=== PATIENT | female | born 1940 | race African-American/Black ===

== ENCOUNTER 2018-08-10 17:49 | Inpatient (IN) | payer MEDICARE ==
[2018-08-11] MEDS: ALPRAZolam 0.25 MG TAB PO PRN ×2 (01:25→20:35)
[2018-08-11] MEDS: Mometasone/Formoterol 60 PUFF AER INH SCH ×2 (06:01→18:05)
[2018-08-11] MEDS: Acetaminophen 325 MG TAB PO PRN (08:44)
[2018-08-11] MEDS: Nebivolol HCl 5 MG TAB PO SCH (08:45)
[2018-08-11] MEDS: Folic Acid 1 MG TAB PO SCH (08:45)
[2018-08-11] MEDS: Polyethylene Glycol 3350 17 GM Packet PO SCH (08:45)
[2018-08-11] MEDS: Famotidine 20 MG TAB PO SCH (08:45)
[2018-08-11] MEDS: FORTEO 20 MCG SC SCH (09:00)
--- NOTE | 2018-08-11 09:59 | HP ---
DATE OF ADMISSION: To extended care later on the evening of 08/10/2018 CHIEF COMPLAINT: Weakness, following hospitalization for chronic obstructive pulmonary disease acute exacerbation. PRESENT ILLNESS: Mrs. Quinn is a 78-year-old -[place] female, who resides at her home alone. She has a history of COPD, depression, osteoporosis, dementia, and a fall with a right hip fracture requiring repair on 06/13/2018. The patient was hospitalized at [facility] from 08/04/20 18-08/10/2018 for acute hypoxic-hypercapnic respiratory failure, secondary to acute exacerbation of h er COPD. She required respiratory support initially with a BiPAP and treated with IV antibiotics and steroids with improvement. She was left very weak and essentially bed and chair-confined and with a ny activity creating some shortness of breath. While in the hospital, it was suggested she consider hospice care due to her advanced COPD, but she and the family have declined this. She opted to try s killed nursing to try to help with her generalized weakness. She has stopped smoking about a month p rior to this admission. The patient was transferred to [facility] for efforts to try to help with her general weakness and deconditioning in an effort to improve her general functio nal capability. She arrived to the hospital late on the evening of 08/10/2018 and her routine medici claire were continued. The patient was seen early on the morning of 08/11/2018. She was alert and spok e very soft voice, was hard to understand. She was a very poor historian good and was disoriented, w hich apparently is her baseline. She knew who she was, but not where she was or the circumstances of what had occurred. She presents saying nothing was bothering her and she was just weak. PAST HISTORY: Hospitalized at [facility] from 08/04/2018-08/10/2018 for acute hypoxic-hyp ercapnic respiratory failure, secondary to chronic obstructive pulmonary disease acute exacerbation, hospitalized at [facility] from 06/13/2018 to 06/24/2018 following a fall with a left subc apital femoral neck fracture, for which she underwent a left hemiarthroplasty by Dr. Alexis on 06/13. She was discharged to rehab, and upon completion there, apparently was discharged home. Cheli ng that hospitalization, she did undergo a stress test, nuclear medicine evaluation, which showed no reversible ischemia and EF of 90%. Echocardiogram showed an ejection fraction of 55%-60% and possibl e diastolic dysfunction. No cardiac wall abnormalities seen. CT scan of the brain after the fall showed no acute intracranial abnormalities. She also has a history of anxiety with panic, depress ion, hyperlipidemia, hypertension, cigarette abuse, osteoporosis. She has had a previous hysterectom y and the right hip arthroplasty on 06/13/2018. PRESENT MEDICATIONS: Breo Ellipta 1 inhalation daily, pravastatin 40 mg at bedtime, aspirin 81 mg da monty, folic acid 1 mg daily, thiamine 100 mg daily, alprazolam 0.25 mg b.i.d. p.r.n., famotidine 20 mg daily, Bystolic 2.5 mg daily, sertraline 50 mg daily, Forteo 20 mg subcu daily, DuoNeb every 6 hours as needed, MiraLax 17 grams 8 ounces of water daily. ALLERGIES: No known allergies. REVIEW OF SYSTEMS: The patient said she feels okay. Head And Neck: No complaints. Pulmonary: No shortness of breath. Cardiovascular: No chest pain. Gastrointestinal: No nausea or vomiting. Does not eat very well. No change in bowels. Genitourinary: Incontinent of urine. Nirmal ro/Psychiatric: The patient has problems with some forgetfulness and confusion. Musculoskeletal: E xtreme weakness. Nurses said she has only been able to walk maybe 4 feet with assistance and require s maximum assistance with any transfer. Skin: The patient has a small stage 2 decubitus on the butt ock that is healing. HABITS: Patient used to smoke, but stopped about a month prior to this admission. Alcohol, none. SOCIAL HISTORY: The patient has been living at home by herself, but there is not in any condition to try to return to independent living. CODE STATUS: Unknown. PHYSICAL EXAMINATION: GENERAL: Shows a 78-year-old -[place] female, who is an asthenic build. She is lying in bed , awake, speaks in a very low voice. She appears comfortable in no distress. VITAL SIGNS: Shows a temperature of 97, pulse 93, respirations 20, O2 saturation 97% on 2 liters, bl ood pressure 158/74. Her weight is 95.2. HEAD: Normocephalic and atraumatic. EYES: Pupils are equal, round, and reactive. EARS: TMs are clear. NOSE: Normal. MOUTH AND THROAT: Normal. NECK: Carotids are equal and strong, no bruits. Thyroid not enlarged. LUNGS: The patient has fair breath sounds. Did not hear any rales, no wheeze or rhonchi. HEART: Regular rate. No murmurs. ABDOMEN: Scaphoid. There is no organomegaly nor areas of tenderness. EXTREMITIES: Lower extremities, no edema. The patient is a small stage 2 decubitus healing reported on the buttock. NEUROLOGIC: Patient is alert. Her eyes were open. She talks to me. Did not know where she was and was disoriented to time, disoriented to situation, but knew who she was. She has severe generalized weakness, no focal weakness. IMPRESSION: 1. Severe generalized weakness and deconditioning. A. Requires assistance with all her ADLs. B. Requires maximum assistance with transfers. 2. Hospitalized at [facility] from 08/04/2018 to 08/10/2018 for acute hypoxic-hypercapnic respiratory failure, secondary to chronic obstructive pulmonary disease acute exacerbation. 3. Chronic obstructive pulmonary disease, severe. A. Hospitalized for acute exacerbation with acute hypoxic-hypercapnic respiratory failure from 08/04-08/10/2018 at [facility]. B. Requires supplemental O2. 4. Hypertension. 5. Osteoporosis. 6. Hypertension. 7. Depression. 8. Dementia. 9. History of cigarette abuse. A. Stopped smoking in 06/2018. 10. History of a subcapital fracture of the left hip from a fall on 06/13/2018. A. Status post left hip arthroplasty by Dr. Alexis on 06/13/2018. PLAN: The patient is being admitted to extended care with attempt to have physical therapy work with her and occupational therapy to work with her in an effort to try to improve her general functional capability. Right now, she is very weak. With patient's multiple medical problems and dementia, the patient will not be able to return to independent living. Will require supervised living arrangemen t. See orders.
[2018-08-11] MEDS: Enoxaparin Sodium 30 MG/0.3 ML SYRINGE SC SCH (11:58)
[2018-08-11] MEDS: Pravastatin Sodium 20 MG TAB PO SCH (20:35)
[2018-08-12 05:24] LABS: ALT (SGPT) 20 U/L (8-55); AST (SGOT) 12 U/L (5-34); Albumin 3.1 g/dL (3.4-4.8); Alkaline Phosphatase 80 U/L (40-150); Anion Gap 11 mmol/L (10-20); BUN (Urea Nitrogen) 13 mg/dL (9.8-20.1); Bilirubin, Total 0.3 mg/dL (0.2-1.2); Calc. Creatinine Clearance 55 mL/min (70-130); Calcium 9.2 mg/dL (7.8-10.44); Carbon Dioxide 34 mmol/L (23-31); Cholesterol 137 mg/dl (< 200 Desired); Estimated GFR-MDRD Greater than 90; Glucose 92 mg/dL (83-110); HDL Cholesterol 45 mg/dL (>60 Neg Risk); LDL Cholesterol, Calculated 79 mg/dL; Protein, Total 5.1 g/dL (6.0-8.3); Sodium 144 mmol/L (136-145); Triglycerides 63 mg/dL (Less than 150)
[2018-08-12 05:39] LABS: Chloride 103 mmol/L (98-107)
[2018-08-12] MEDS: Mometasone/Formoterol 60 PUFF AER INH SCH ×2 (06:01→18:14)
[2018-08-12] MEDS: Polyethylene Glycol 3350 17 GM Packet PO SCH (08:03)
[2018-08-12] MEDS: Enoxaparin Sodium 30 MG/0.3 ML SYRINGE SC SCH (08:03)
[2018-08-12] MEDS: Nebivolol HCl 5 MG TAB PO SCH (08:03)
[2018-08-12] MEDS: Famotidine 20 MG TAB PO SCH (08:04)
[2018-08-12] MEDS: Folic Acid 1 MG TAB PO SCH (08:04)
[2018-08-12] MEDS: FORTEO 20 MCG SC SCH (08:22)
[2018-08-12] MEDS: Pravastatin Sodium 20 MG TAB PO SCH (20:40)
[2018-08-13 03:35] LABS: Bilirubin Negative (Negative); Blood, Urine Negative (Negative); Clarity Clear (Clear); Glucose, Urine (Dipstick) Negative (Negative); Leukocyte Negative (Negative); Nitrite Negative (Negative); Protein, Urine (Dipstick) Trace mg/dL (Neg-Trace); Specific Gravity, Urine 1.025 (1.005-1.030); Urobilinogen 0.2 mg/dL (0.2-1.0)
[2018-08-13 03:38] LABS: Bacteria/HPF Rare-Few HPF (None Seen); RBC/HPF 0-3 HPF (0-3); Squamous Epithelial 0-3 HPF (0-3); WBC/HPF 0-3 HPF (0-3); Yeast-All Forms Rare HPF (None Seen)
[2018-08-13] MEDS: Mometasone/Formoterol 60 PUFF AER INH SCH ×2 (06:17→18:08)
[2018-08-13] MEDS: ALPRAZolam 0.25 MG TAB PO PRN ×2 (06:22→21:03)
[2018-08-13] MEDS: Enoxaparin Sodium 30 MG/0.3 ML SYRINGE SC SCH (08:26)
[2018-08-13] MEDS: Polyethylene Glycol 3350 17 GM Packet PO SCH (08:26)
[2018-08-13] MEDS: Nebivolol HCl 5 MG TAB PO SCH (08:27)
[2018-08-13] MEDS: Folic Acid 1 MG TAB PO SCH (08:28)
[2018-08-13] MEDS: Famotidine 20 MG TAB PO SCH (08:28)
[2018-08-13] MEDS: FORTEO 20 MCG SC SCH (08:32)
--- NOTE | 2018-08-13 11:40 | PRG ---
DATE OF SERVICE: 08/12/2018 SUBJECTIVE: The patient said she is feeling better today, earlier this morning, she had complaints o f shortness of breath after receiving her neb treatments, she felt better. OBJECTIVE: GENERAL: The patient is sitting up in a bedside chair. She is talkative, looks much better today. She is an asthenic-built -[place] female. VITAL SIGNS: Show temperature 97.6, pulse 97, respirations were 30 and earlier it was 20, O2 sat 98% on room air, blood pressure 138/70. LUNGS: The patient has moderate breath sounds. There are some coarse expiratory breath sounds with some rhonchi over the left posterior chest. HEART: Regular rate. EXTREMITIES: No edema. LABORATORY DATA: Showed sodium of 144, potassium 4, BUN of 13, creatinine 0.58. Her albumin is 3.1, glucose 92, GFR greater than 90. ASSESSMENT: 1. Severe generalized weakness and deconditioning. A. Requires assistance with all her ADLs. B. Requires maximum assistance with transfers. C. Improved. Tolerating sitting up in a chair as of 08/12/2018. 2. Hospitalized at [facility] from 08/04/2018 to 08/10/2018 for acute hypoxic-hypercapnic respiratory failure, secondary to chronic obstructive pulmonary disease acute exacerbation. 3. Chronic obstructive pulmonary disease, severe. A. Hospitalized for acute exacerbation with acute hypoxic-hypercapnic respiratory failure from 08/04-08/10/2018 at [facility]. B. Requires supplemental O2. 4. Hypertension. 5. Osteoporosis. 6. Hypertension. 7. Depression. 8. Dementia. 9. History of cigarette abuse. A. Stopped smoking in 06/2018. 10. History of a subcapital fracture of the left hip from a fall on 06/13/2018. A. Status post left hip arthroplasty by Dr. Alexis on 06/13/2018. PLAN: Continue present care. Continue PT/OT.
--- NOTE | 2018-08-13 12:06 | PRG ---
DATE OF SERVICE: 08/13/2018. SUBJECTIVE: Last night, the patient had not voided all day. A bladder scan was done and showed over 300 mL of urine in her bladder. She attempted to void unsuccessfully. Catheter was placed and she had a 400 mL residual. The patient said she would not having trouble urinating previously when in [facility] [place]. OBJECTIVE: GENERAL: The patient is lying in bed, appears comfortable in no distress. VITAL SIGNS: Shows a temperature of 97.2, pulse 103, respirations 22, O2 sat 93% on 2 liters, blood pressure 135/63. LUNGS: Have very poor breath sounds, which is chronic for her. I did not hear any wheeze or rhonchi . HEART: Regular rate. EXTREMITIES: No edema. LABORATORY DATA: Urinalysis showed 0-3 WBCs, 0-3 RBCs. Specific gravity 1.025, ketones were negativ e, nitrite negative. ASSESSMENT: 1. Severe generalized weakness and deconditioning. A. Requires assistance with all her ADLs. B. Improved. Tolerating sitting up in a bedside chair as of 08/13/2018. 2. Hospitalized at [facility] from 08/04/2018 to 08/10/2018 for acute hypoxic-hypercapnic respiratory failure, secondary to chronic obstructive pulmonary disease acute exacerbation. 3. Chronic obstructive pulmonary disease, severe. A. Hospitalized for acute exacerbation with acute hypoxic-hypercapnic respiratory failure from 08/04-08/10/2018 at [facility]. B. Requires supplemental O2. C. Stable as of 08/13/2018. 4. Hypertension. 5. Osteoporosis. 6. Hypertension. 7. Depression. 8. Dementia. 9. History of cigarette abuse. A. Stopped smoking in 06/2018. 10. History of a subcapital fracture of the left hip from a fall on 06/13/2018. A. Status post left hip arthroplasty by Dr. Alexis on 06/13/2018. 11. Urinary retention. A. Catheter passed and patient had a 400 residual as of 08/13/2018. PLAN: Continue present care. Continue PT. We will leave the catheter in for few days and then we w ill give patient a voiding trial.
[2018-08-13] MEDS: Pravastatin Sodium 20 MG TAB PO SCH (21:02)
[2018-08-13] MEDS: Acetaminophen 325 MG TAB PO PRN (21:03)
[2018-08-14] MEDS: Mometasone/Formoterol 60 PUFF AER INH SCH ×2 (06:18→18:20)
[2018-08-14] MEDS: Polyethylene Glycol 3350 17 GM Packet PO SCH (08:55)
[2018-08-14] MEDS: Nebivolol HCl 5 MG TAB PO SCH (08:56)
[2018-08-14] MEDS: Folic Acid 1 MG TAB PO SCH (08:56)
[2018-08-14] MEDS: Famotidine 20 MG TAB PO SCH (08:56)
[2018-08-14] MEDS: Enoxaparin Sodium 30 MG/0.3 ML SYRINGE SC SCH (08:56)
[2018-08-14] MEDS: FORTEO 20 MCG SC SCH (10:26)
[2018-08-14] MEDS: Acetaminophen 325 MG TAB PO PRN (20:51)
[2018-08-14] MEDS: Pravastatin Sodium 20 MG TAB PO SCH (20:51)
[2018-08-14] MEDS: ALPRAZolam 0.25 MG TAB PO PRN (20:57)
[2018-08-15] MEDS: ALPRAZolam 0.25 MG TAB PO PRN ×2 (05:03→20:46)
[2018-08-15] MEDS: Mometasone/Formoterol 60 PUFF AER INH SCH ×2 (06:00→18:07)
[2018-08-15] MEDS: Famotidine 20 MG TAB PO SCH (09:12)
[2018-08-15] MEDS: Nebivolol HCl 5 MG TAB PO SCH (09:12)
[2018-08-15] MEDS: Polyethylene Glycol 3350 17 GM Packet PO SCH (09:12)
[2018-08-15] MEDS: Enoxaparin Sodium 30 MG/0.3 ML SYRINGE SC SCH (09:13)
[2018-08-15] MEDS: Folic Acid 1 MG TAB PO SCH (09:15)
[2018-08-15] MEDS: FORTEO 20 MCG SC SCH (09:16)
[2018-08-15] MEDS: Acetaminophen 325 MG TAB PO PRN (20:45)
[2018-08-15] MEDS: Pravastatin Sodium 20 MG TAB PO SCH (20:45)
[2018-08-16] MEDS: Mometasone/Formoterol 60 PUFF AER INH SCH ×2 (06:34→17:49)
[2018-08-16] MEDS: Polyethylene Glycol 3350 17 GM Packet PO SCH (08:11)
[2018-08-16] MEDS: Nebivolol HCl 5 MG TAB PO SCH (08:11)
[2018-08-16] MEDS: Famotidine 20 MG TAB PO SCH (08:14)
[2018-08-16] MEDS: Enoxaparin Sodium 30 MG/0.3 ML SYRINGE SC SCH (08:14)
[2018-08-16] MEDS: Folic Acid 1 MG TAB PO SCH (08:14)
[2018-08-16] MEDS: FORTEO 20 MCG SC SCH (08:59)
--- NOTE | 2018-08-16 13:59 | PRG ---
DATE OF SERVICE: 08/16/2018 SUBJECTIVE: The patient had no complaint. Nurses report no problem. Her Deras catheter has been fu nctioning well. She has not had any complaints regarding this. OBJECTIVE: GENERAL: The patient is lying in bed, alert, appears comfortable and in no distress. VITAL SIGNS: Shows a temperature 97, pulse 94, respirations 28, O2 sat 100% on room air, blood press ure 119/58. LUNGS: The patient has poor breath sounds, which are chronic. I did not hear any wheeze, rhonchi or rales. HEART: Regular rate. EXTREMITIES: No edema. LABORATORY DATA: Her culture has no growth. ASSESSMENT: 1. Severe generalized weakness and deconditioning. A. Requires assistance with all her ADLs. B. Improved. Tolerating sitting up in a bedside chair as of 08/16/2018. 2. Hospitalized at [facility] from 08/04/2018 to 08/10/2018 for acute hypoxic-hypercapnic respiratory failure, secondary to chronic obstructive pulmonary disease acute exacerbation. 3. Chronic obstructive pulmonary disease, severe. A. Hospitalized for acute exacerbation with acute hypoxic-hypercapnic respiratory failure from 08/04-08/10/2018 at [facility]. B. Requires supplemental O2. C. Stable as of 08/16/2018. 4. Hypertension. 5. Osteoporosis. 6. Hypertension. 7. Depression. 8. Dementia. 9. History of cigarette abuse. A. Stopped smoking in 06/2018. 10. History of a subcapital fracture of the left hip from a fall on 06/13/2018. A. Status post left hip arthroplasty by Dr. Alexis on 06/13/2018. 11. Urinary retention. A. Catheter passed and patient had a 400 residual as of 08/13/2018. B. Urine culture, no growth. PLAN: We will try discontinuing the catheter in the bladder. Continue PT, OT. I had an opportunity to visit with her grandson few days ago. They are looking at postop care that would be either care for her in the home with family with her taking care of her or intermediate placement. We will get [facility] to work with them to help assure arrangements are being made.
[2018-08-16] MEDS: ALPRAZolam 0.25 MG TAB PO PRN (19:31)
[2018-08-16] MEDS: Pravastatin Sodium 20 MG TAB PO SCH (20:06)
[2018-08-17] MEDS ORDERED: Sodium Chloride 0.9% 250 ML 250 ML ONE (01:03)
[2018-08-17] MEDS: Mometasone/Formoterol 60 PUFF AER INH SCH ×2 (07:01→17:25)
[2018-08-17] MEDS ORDERED: Sodium Chloride Irrig Solution 250 ML BOT ONE (08:00)
[2018-08-17] MEDS ORDERED: Sodium Chloride 0.9% 1,000 ML BAG ONE (08:00)
[2018-08-17] MEDS: Enoxaparin Sodium 30 MG/0.3 ML SYRINGE SC SCH (09:04)
[2018-08-17] MEDS: Nebivolol HCl 5 MG TAB PO SCH (09:04)
[2018-08-17] MEDS: Famotidine 20 MG TAB PO SCH (09:05)
[2018-08-17] MEDS: ALPRAZolam 0.25 MG TAB PO PRN (09:05)
[2018-08-17] MEDS: Folic Acid 1 MG TAB PO SCH (09:06)
[2018-08-17] MEDS: FORTEO 20 MCG SC SCH (09:06)
[2018-08-17] MEDS: Polyethylene Glycol 3350 17 GM Packet PO SCH (09:07)
--- NOTE | 2018-08-17 10:31 | PRG ---
DATE OF SERVICE: 08/17/2018 SUBJECTIVE: The patient says that she is feeling alright this morning. Her catheter was removed yes terday. She was scanned several times after not voiding, had 94 mL listed in the bladder. She later had voided. The patient said she had voided and is having no pain in the bladder area. She said he r breathing is doing alright. The patient is working with physical therapy and is walking up to 10 f eet with a rolling walker and moderate assistance. She requires moderate to maximum assistance with any transfers. OBJECTIVE: The patient lying in bed. She looks comfortable. She is receiving a neb treatment. Her temperature was 98.3. Her pulse was 80. She did have an episode last night of pulse up to 112, res pirations were 24, O2 sat 100% on 2 liters, blood pressure 146/64. Lungs; the patient has poor breat h sounds, but had no rales, wheezes or rhonchi. Heart; regular rate. Extremities; no edema. ASSESSMENT: 1. Severe generalized weakness and deconditioning. A. Requires assistance with all her ADLs. B. Improved as of 08/17/2018. Walking up to 10 feet with a rolling walker and moderate assistance. Requires moderate to maximum assistance with transfers. 2. Hospitalized at [facility] from 08/04/2018 to 08/10/2018 for acute hypoxic-hypercapnic respiratory failure, secondary to chronic obstructive pulmonary disease acute exacerbation. 3. Chronic obstructive pulmonary disease, severe. A. Hospitalized for acute exacerbation with acute hypoxic-hypercapnic respiratory failure from 08/04-08/10/2018 at [facility]. B. Requires supplemental O2. C. Stable as of 08/17/2018. 4. Hypertension. 5. Osteoporosis. 6. Hypertension. 7. Depression. 8. Dementia. 9. History of cigarette abuse. A. Stopped smoking in 06/2018. 10. History of a subcapital fracture of the left hip from a fall on 06/13/2018. A. Status post left hip arthroplasty by Dr. Alexis on 06/13/2018. 11. Urinary retention. A. Catheter passed and patient had a 400 residual as of 08/13/2018. B. Urine culture, no growth. C. Catheter removed on 08/16/2018 and the patient has voided some since then and has no pain as of 10/17/2017. PLAN: Continue PT, OT. Continue present care.
[2018-08-17] MEDS: Pravastatin Sodium 20 MG TAB PO SCH (20:42)
[2018-08-18] MEDS: Mometasone/Formoterol 60 PUFF AER INH SCH ×2 (06:07→19:29)
[2018-08-18] MEDS: Enoxaparin Sodium 30 MG/0.3 ML SYRINGE SC SCH (08:35)
[2018-08-18] MEDS: Nebivolol HCl 5 MG TAB PO SCH (08:36)
[2018-08-18] MEDS: Polyethylene Glycol 3350 17 GM Packet PO SCH (08:36)
[2018-08-18] MEDS: Folic Acid 1 MG TAB PO SCH (08:36)
[2018-08-18] MEDS: Famotidine 20 MG TAB PO SCH (08:36)
[2018-08-18] MEDS: FORTEO 20 MCG SC SCH (08:45)
--- NOTE | 2018-08-18 08:50 | PRG ---
DATE OF SERVICE: 08/18/2018 SUBJECTIVE: The patient states she is doing alright. She states she has not had any trouble urinating. Her breathing is good this morning. Yesterday, she walked up to 10 feet twice with moderate assistance and a rolling walker. Still requires moderate to maximum assistance for any transfers. OBJECTIVE: GENERAL: The patient is lying in bed. She is alert, appears comfortable, in no distress. VITAL SIGNS: Her temperature 98.5, her pulse is 84, respirations 18, O2 saturation 100% on 2 L, blood pressure 129/59. LUNGS: Poor breath sounds, which were chronic and unchanged. There is a slight wheeze on expiration anteriorly. Left chest, could not hear any wheezing, but again breath sounds are very poor. HEART: Regular rate. EXTREMITIES: No edema. ABDOMEN: Soft, nontender. ASSESSMENT: 1. Severe generalized weakness and deconditioning. a. Requires assistance with all her ADLs. b. Stable as of 08/18/2018, walking up to 10 feet with a rolling walker and moderate assistance. Requires moderate to maximum assistance with transfers. 2. Hospitalized at [facility] from 08/04/2018 to 08/10/2018 for acute hypoxic-hypercapnic respiratory failure, secondary to chronic obstructive pulmonary disease acute exacerbation. 3. Chronic obstructive pulmonary disease, severe. a. Requires supplemental O2. b. Stable as of 08/18/2018. 4. Hypertension. 5. Osteoporosis. 6. Hypertension. 7. Depression. 8. Dementia. 9. History of cigarette abuse. a. Stopped smoking in 06/2018. 10. History of a subcapital fracture of the left hip from a fall on 06/13/2018. a. Status post left hip arthroplasty by Dr. Alexis on 06/13/2018. 11. Urinary retention. a. Catheter passed and patient had a 400 residual as of 08/13/2018. b. Urine culture, no growth. c. Catheter removed on 08/16/2018 and the patient has voided some since then and has no pain as of 08/17/2018. PLAN Continue present care. Unsure how much improvement functionally she will gain with her severe weakness and her severe COPD, but will continue with the therapy and see how she does. Upon discharge, she will certainly need to be with someone to assist her 13/04. Job ID: [id number]
[2018-08-18 12:19] VITALS: BMI 13.9
[2018-08-18] MEDS: Pravastatin Sodium 20 MG TAB PO SCH (20:43)
[2018-08-18] MEDS: ALPRAZolam 0.25 MG TAB PO PRN (22:39)
[2018-08-19] MEDS: Mometasone/Formoterol 60 PUFF AER INH SCH ×2 (06:01→18:21)
[2018-08-19] MEDS: FORTEO 20 MCG SC SCH (08:45)
[2018-08-19] MEDS: Famotidine 20 MG TAB PO SCH (08:45)
[2018-08-19] MEDS: Folic Acid 1 MG TAB PO SCH (08:45)
[2018-08-19] MEDS: Polyethylene Glycol 3350 17 GM Packet PO SCH (08:45)
[2018-08-19] MEDS: Enoxaparin Sodium 30 MG/0.3 ML SYRINGE SC SCH (08:47)
[2018-08-19] MEDS: Nebivolol HCl 5 MG TAB PO SCH (08:51)
[2018-08-19] MEDS: Pravastatin Sodium 20 MG TAB PO SCH (20:55)
[2018-08-19] MEDS: Mirtazapine 15 MG TAB PO SCH (20:55)
--- NOTE | 2018-08-19 21:19 | PRG ---
DATE OF SERVICE: 08/19/2018 SUBJECTIVE: The patient states she was feeling okay this morning. She is not having any complaint. She has worked with Physical Therapy and this morning was able to walk about 12 feet with rolling walker and moderate assistance. She still requires [id number] assistance with any transfers. The patient has not been eating good. Weight has been stable at 83. Elevator Serviceman suggested may be a trial of a mechanical soft diet. OBJECTIVE: GENERAL: The patient is lying in bed, very weak. She appears comfortable and not in any acute distress. VITAL SIGNS: Her temperature is 96.6, pulse 97, respirations 18, O2 sat 100% on 2 liters. Blood pressure 141/62. LUNGS: The patient has poor breath sounds, which is her usual. I did not hear any wheeze, rhonchi, or rales. HEART: Regular rate. EXTREMITIES: No edema. ASSESSMENT: 1. Severe generalized weakness and deconditioning. a. Require assistance with all her activity of daily living and instrumental activity of daily living. b. A little improvement where she is able to walk 10 to 12 feet with a rolling walker with moderate orthodontist assistant. Requires [id number] orthodontist assistant with transfers as of 08/19/2018. 2. Hospitalized at [facility] from 08/04/2018 to 08/10/2018 for acute hypoxic hypercapnic respiratory failure secondary to chronic obstructive pulmonary disease with acute exacerbation. 3. Chronic obstructive pulmonary disease, severe: a. Require supplemental O2. b. Stable as of 08/19/2018. 4. Hypertension. 5. Failure to thrive. a. Poor appetite with weight loss and generalized weakness. b. Require assistance with all activities of daily living. 6. Osteoporosis. 7. Hypertension. 8. Depression. 9. Dementia. 10. History of cigarette abuse. a. Stopped smoking in June 2018. 11. History of subcapital fracture of the left hip from a fall on 06/13/2018. a. Status post left hip arthroplasty by Dr. Alexis on 06/13/2018. The patient has made little progress with therapy, but still requiring a total care. She is not eating well with a weight loss from 95 to 83 pounds from 08/10/2018 to 2017. We will try the patient on supplements. will stop the sertraline and try mirtazapine and she if this will help some with her appitite. We will try her on a mechanical soft diet. We will continue physical therapy. Job ID: [id number] [email or web address]
[2018-08-20] MEDS: Mometasone/Formoterol 60 PUFF AER INH SCH ×3 (06:01→20:47)
[2018-08-20] MEDS: Enoxaparin Sodium 30 MG/0.3 ML SYRINGE SC SCH (08:58)
[2018-08-20] MEDS: Famotidine 20 MG TAB PO SCH (08:58)
[2018-08-20] MEDS: Nebivolol HCl 5 MG TAB PO SCH (08:58)
[2018-08-20] MEDS: Folic Acid 1 MG TAB PO SCH (08:58)
[2018-08-20] MEDS: Polyethylene Glycol 3350 17 GM Packet PO SCH (08:58)
[2018-08-20] MEDS: ALPRAZolam 0.25 MG TAB PO PRN (08:59)
[2018-08-20] MEDS: FORTEO 20 MCG SC SCH (09:46)
--- NOTE | 2018-08-20 11:09 | PRG ---
DATE OF SERVICE: 08/20/2018 SUBJECTIVE: The patient is up in the chair today, eating a little bit of her breakfast. She seems alert a little more, but did not have much to say. She has walked 10 to 14 feet this morning with rolling walker and moderate assistance, as she is requiring moderate to maximum assist on transfers. OBJECTIVE: GENERAL: The patient is sitting up in a chair, is alert, appears comfortable, in no distress. She is feeding herself a little bit of her breakfast. VITAL SIGNS: Temperature of 98.1, pulse 92, respirations 22, O2 saturation 100% on 2 L, and blood pressure 179/84. LUNGS: Poor breath sounds, which are chronic. I could hear some breath sounds anteriorly, which are clear, very little breath sounds can be heard posteriorly because she moves such a little air. HEART: Regular rate. EXTREMITIES: No edema. ASSESSMENT: 1. Severe generalized weakness and deconditioning. a. Require assistance with all her activity of daily living and instrumental activity of daily living. b. mild improvement, tolerating, sitting up in the chair. Walking up to 14 feet with rolling walker and assistance. Requires moderate to max assist for transfer as of 08/20/2018. 1. Hospitalized at [facility] from 08/04/2018 to 08/10/2018 for acute hypoxic hypercapnic respiratory failure secondary to chronic obstructive pulmonary disease with acute exacerbation. 1. Chronic obstructive pulmonary disease, severe: a. Require supplemental O2. b. Stable as of 08/20/2018. 2. Hypertension. 3. Failure to thrive. a. Poor appetite with weight loss and generalized weakness. b. Require assistance with all activities of daily living. 4. Osteoporosis. 5. Hypertension. 6. Depression. 7. Dementia. 8. History of cigarette abuse. a. Stopped smoking in June 2018. 9. History of subcapital fracture of the left hip from a fall on 06/13/2018. a. Status post left hip arthroplasty by Dr. Alexis on 06/13/2018. PLAN: We will continue efforts with PT and OT. She is making a little progress. She does have failure to thrive, the poor appetite, and weight has dropped to 83, which is stable over the last several days. I have switched her to mirtazapine in an effort to stimulate her appetite. The patient uses the alprazolam on a p.r.n. basis; review of her MAR, it looks like at one time a day at least. Job ID: [id number]
[2018-08-20] MEDS: Pravastatin Sodium 20 MG TAB PO SCH (20:48)
[2018-08-20] MEDS: Mirtazapine 15 MG TAB PO SCH (20:48)
[2018-08-21] MEDS: ALPRAZolam 0.25 MG TAB PO PRN ×2 (02:37→15:12)
[2018-08-21] MEDS: Mometasone/Formoterol 60 PUFF AER INH SCH ×2 (06:04→18:11)
[2018-08-21] MEDS: Polyethylene Glycol 3350 17 GM Packet PO SCH (09:37)
[2018-08-21] MEDS: Enoxaparin Sodium 30 MG/0.3 ML SYRINGE SC SCH (09:37)
[2018-08-21] MEDS: Nebivolol HCl 5 MG TAB PO SCH (09:38)
[2018-08-21] MEDS: Folic Acid 1 MG TAB PO SCH (09:38)
[2018-08-21] MEDS: Famotidine 20 MG TAB PO SCH (09:38)
[2018-08-21] MEDS: FORTEO 20 MCG SC SCH (09:49)
--- NOTE | 2018-08-21 10:57 | PRG ---
DATE OF SERVICE: 08/21/2018 SUBJECTIVE: The patient said she is feeling better today. She said she had eaten a little bit yesterday. Yesterday, she walked up to 22 feet with a rolling walker with moderate assistance. She is requiring [id number] assistance with transfers. Nurses said that the patient occasionally, maybe once a day, has to use the Xanax. This is to help with her. She gets short of breath and starts breathing very rapidly, and the Xanax helps calm her down and helps relieve the sense of shortness of breath. OBJECTIVE: GENERAL: The patient is lying in bed. She is alert and looks comfortable. VITAL SIGNS: Her temperature is 97.3, pulse 95, respirations 20, O2 saturation 100% on 2 L, blood pressure 131/63. LUNGS: The patient has very poor breath sounds, which were chronic. She has had a little breath sounds anteriorly, which are clear. Could not hear breath sounds posteriorly. HEART: Regular rate. EXTREMITIES: No edema. ASSESSMENT: 1. Severe generalized weakness and deconditioning. a. Require assistance with all her activity of daily living and instrumental activity of daily living. b. Improved, where she is walking up to 22 feet. Still requires [id number] assist with transfers as of 08/21. 1. Hospitalized at [facility] from 08/04/2018 to 08/10/2018 for acute hypoxic hypercapnic respiratory failure secondary to chronic obstructive pulmonary disease with acute exacerbation. 1. Chronic obstructive pulmonary disease, severe: a. Require supplemental O2. b. Stable as of 08/21/2018. 2. Hypertension. 3. Failure to thrive. a. Poor appetite with weight loss and generalized weakness. b. Require assistance with all activities of daily living. 4. Osteoporosis. 5. Hypertension. 6. Depression. 7. Dementia. 8. History of cigarette abuse. a. Stopped smoking in June 2018. 9. History of subcapital fracture of the left hip from a fall on 06/13/2018. a. Status post left hip arthroplasty by Dr. Alexis on 06/13/2018. PLAN: We will continue with PT and OT. Hospital and family have been informed that their insurance will no longer cover them since they felt like she has reached maximum improvement. This we would argue since she has been making a little progress with her physical therapy and walking a little further. They said that the last day of coverage will be Thursday, 08/22. Nurses have visited with the patient's son, and the plans are that she will come to live with the son and his , so someone will be with her at all time. We will need to arrange for home health and home O2. Once all these elements are arranged, we can then discharge her. Job ID: [id number] MTDD
[2018-08-21] MEDS: Pravastatin Sodium 20 MG TAB PO SCH (20:51)
[2018-08-21] MEDS: Mirtazapine 15 MG TAB PO SCH (20:52)
[2018-08-22] MEDS: Mometasone/Formoterol 60 PUFF AER INH SCH (06:55)
[2018-08-22 09:02] VITALS: BP 141/65; TEMP 97.4
[2018-08-22] MEDS: Polyethylene Glycol 3350 17 GM Packet PO SCH (09:11)
[2018-08-22] MEDS: Enoxaparin Sodium 30 MG/0.3 ML SYRINGE SC SCH (09:11)
[2018-08-22] MEDS: Nebivolol HCl 5 MG TAB PO SCH (09:12)
[2018-08-22] MEDS: Famotidine 20 MG TAB PO SCH (09:13)
[2018-08-22] MEDS: Folic Acid 1 MG TAB PO SCH (09:13)
[2018-08-22] MEDS: FORTEO 20 MCG SC SCH (09:13)
[2018-08-22] MEDS: ALPRAZolam 0.25 MG TAB PO PRN (13:11)
--- NOTE | 2018-08-23 07:50 | DIS ---
DATE OF ADMISSION: 08/10/2018 DATE OF DISCHARGE: 08/22/2018 FINAL IMPRESSION: 1. Severe generalized weakness and deconditioning. a. Requires assistance with all of her activities of daily living instrumental activities of daily living. b. Improved, where she is walking up to 14 feet with a rolling walker with moderate assistance. Still requires moderate to maximum assistance with transfers. 2. Hospitalized at [facility] from 08/04/2018 through 08/10/2018 for acute hypoxic hypercapnic respiratory failure secondary to chronic obstructive pulmonary disease with acute exacerbation. 3. Chronic obstructive pulmonary disease, severe. a. Complicated by chronic hypoxemia. b. Required supplemental O2. 4. Hypertension. 5. Failure to thrive. a. Manifest by poor appetite that is improving, weight loss and generalized weakness. b. Requires assistance with all activities of daily living. 6. Osteoporosis. 7. Depression. a. Improved. 8. Dementia. 9. History of cigarette abuse. a. Stopped smoking in June 2018. 10. History of subcapital fracture of the left hip from a fall on 06/13/2018. a. Status post left hip arthroplasty by Dr. Alexis on 06/13/2018. HOSPITAL COURSE: The patient is a 78-year-old white female, who has a history of severe COPD, cigarette abuse, hypertension, osteoporosis, and depression. The patient had been living in her home independently, but had a ground level fall on 06/13/2018, where she sustained a subcapital fracture of the left hip. She was hospitalized at [facility] and Dr. Aelxis, orthopedic surgeon, did open reduction and internal fixation with a hip arthroplasty on 06/13. She did well with afterwards ended up in a rehab center and then back home. She then required rehospitalization at [facility] from 08/04 until 08/10 for acute hypoxic hypercapnic respiratory failure secondary to an exacerbation of her severe COPD. She improved, but was left extremely weak, was essentially at that point bed confined and had not been up or able to be up out of bed. She would at times get very anxious and tachypneic. For this, she was receiving Xanax on a p.r.n. basis, which did seem to help. She was transferred to [facility] on the evening of 08/10/2018 for purpose of physical therapy and occupational therapy in an effort to try to improve her general functional capabilities. The patient also has a history of dementia. When the patient first arrived, she was extremely weak, not very interactive, and essentially bed confined. Physical Therapy worked with her and during her hospitalization she showed gradual improvement to where she was able to ambulate up to 14 feet twice today with a rolling walker with assistance. She required moderate to maximum assistance with transfers even at the time of her discharge. During her hospitalization, she was anorexic and had lost weight and seemed more depressed. Her sertraline was stopped and she was started on mirtazapine at bedtime. Her diet was switched to mechanical soft and she seemed to be gradually doing a little better with this. She was eating better. She was sitting up in a chair and was much more interactive. Her COPD was very severe. She had stopped smoking during her last hospitalization. She was receiving her neb treatments regularly and required supplemental O2. Her O2 saturations on 2 L were in 95% to 99%, but without the O2, her O2 saturations would drop into the 70s. The patient had very poor breath sounds, which were chronic for her, where a little air movement could be heard posteriorly and some mild air movement could be heard anteriorly, which was clear. About 08/22/2018, her condition was stable. She had been sitting up in a chair, eating better, was more interactive and talkative and her insurance would no longer cover for additional hospital days in skilled. Her grandson had elected to take her home, where he and his could take care of her. There would be someone with her all the time, O2 has been arranged for in the home for continuous use and home health will be contacted to see her and arrange for in-home OT and PT. DISPOSITION: DIET: Mechanical soft diet. ACTIVITIES: O2 2L by nasal cannula continuous. Ambulate with the use of a walker, up in a chair as tolerated. PT and OT through home health. MEDICATIONS: 1. Acetaminophen 325 mg 2 every 6 hours as needed for pain. 2. DuoNeb by nebulizer q.i.d. and every 4 hours as needed. 3. Xanax 0.25 mg b.i.d. as needed. 4. Aspirin 81 mg daily. 5. Pepcid 20 mg daily. 6. Folic acid 1 mg daily. 7. Forteo 20 mcg subcu daily. 8. Mirtazapine 15 mg at bedtime. 9. Breo Ellipta 1 inhalation daily. 10. Bystolic 2.5 p.o. daily. 11. MiraLAX 17 g 8 ounces water daily. 12. Thiamine 100 mg daily. FOLLOWUP: Home health to see the patient and arrange long-term and also PT and OT. The patient will need follow up with her primary care physician in 2 weeks unless there is an interval problem. CODE STATUS: Full code. Job ID: [id number]
== END 2018-08-22 17:30 | disposition home or self-care (01) | DRG 948 ==
LOC: MADMS 19:27
PROVIDERS: ADMIT Family Medicine; ATTEND Family Medicine
DX: R53.1 Weakness (principal); J44.9 Chronic obstructive pulmonary disease, unspecified; F32.9 Major depressive disorder, single episode, unspecified; M81.0 Age-related osteoporosis without current pathological fracture; F03.90 Unspecified dementia, unspecified severity, without behavioral disturbance, psychotic disturbance, mood disturbance, and anxiety; F17.210 Nicotine dependence, cigarettes, uncomplicated; R62.7 Adult failure to thrive; Z79.82 Long term (current) use of aspirin
CPT/HCPCS: 36415; 80053; 80061; 81001; 87086; 94640; G8987-GO-CM; G8988-GO-CJ; J1650; J7050; J7620